=== PATIENT | male | born 1960 | race Caucasian/White ===

== ENCOUNTER 2018-01-13 10:35 | Emergency (ER) | payer OTHER ==
[2018-01-13 11:32] LABS: ADD MAN DIFF? NO
[2018-01-13 11:36] LABS: BASOPHILS % 0.5 % (0.0-2.0); EOSINOPHILS # 0.1 10^3/ul (0.0-0.5); EOSINOPHILS % 1.2 % (0.0-7.0); HEMATOCRIT 40.3 % (42.0-52.0); LYMPHOCYTES # 1.7 10^3/ul (0.8-2.9); LYMPHOCYTES % 27.9 % (15.0-51.0); MEAN CORPUSCULAR HGB CONC 34.7 g/dl (32.0-37.0); MEAN CORPUSCULAR VOLUME 86.3 fl (82.0-101.0); MEAN PLATELET VOLUME 10.6 fl (7.4-10.4); MONOCYTE # 0.4 10^3/ul (0.3-0.9); MONOCYTES % 6.4 % (0.0-11.0); NEUTROPHIL # 3.8 10^3/ul (1.6-7.5); NEUTROPHILS % 63.7 % (39.0-77.0); PLATELET COUNT 146 10^3/UL (140-415); RED BLOOD COUNT 4.67 10^6/ul (4.70-6.10); RED CELL DISTRIBUTION WIDTH 11.8 % (11.5-14.5)
[2018-01-13] MEDS: ASPIRIN 325 MG TAB PO (11:40)
[2018-01-13] MEDS: NITROGLYCERIN (SL) 0.4 MG TAB SL (11:40)
[2018-01-13 11:57] LABS: ALANINE AMINOTRANSFERASE 21 IU/L (13-69); ALBUMIN 4.4 g/dl (3.3-4.9); ALBUMIN/GLOBULIN RATIO 1.51; ALKALINE PHOSPHATASE 88 IU/L (42-121); ANION GAP 10 (5-13); ASPARTATE AMINO TRANSFERASE 28 IU/L (15-46); BILIRUBIN,INDIRECT 0.2 mg/dl (0-1.1); BILIRUBIN,TOTAL 0.2 mg/dl (0.2-1.3); BLOOD UREA NITROGEN 23 mg/dl (7-20); CALCIUM 9.2 mg/dl (8.4-10.2); CARBON DIOXIDE 25 mmol/L (21-31); CHLORIDE 106 mmol/L (97-110); CREATINE KINASE 254 IU/L (23-200); CREATININE 0.94 mg/dl (0.61-1.24); Estimated GFR > 60 mL/min (>60); GLUCOSE 82 mg/dl (70-220); POTASSIUM 4.5 mmol/L (3.5-5.1); SODIUM 141 mmol/L (135-144); TOTAL PROTEIN 7.3 g/dl (6.1-8.1)
[2018-01-13 12:10] LABS: B-TYPE NATRIURETIC PEPTIDE 113 PG/ML (0-125); CK INDEX 0.6; CK-MB 1.56 ng/ml (0.0-2.4); TROPONIN-I < 0.012 ng/ml (0.000-0.120)
[2018-01-13 12:35] LABS: INR 0.98; PROTIME 13.1 Sec (11.9-14.9)
[2018-01-13] MEDS: IOHEXOL 100 ML (13:36)
[2018-01-13] MEDS: SOD CHLORIDE 0.9% 100 ML (13:36)
== END 2018-01-13 14:25 | disposition home or self-care (01) ==
LOC: E/R 10:35
DX: R09.1 Pleurisy (principal); I10 Essential (primary) hypertension; Z79.82 Long term (current) use of aspirin
CPT/HCPCS: 71045; 71275; 80053; 82550; 82553; 83880; 84484; 85025; 85378; 85610; 85730; 93005; 99285-25

== ENCOUNTER 2018-03-06 07:28 | Day surgery (SDC) | payer OTHER ==
[~2018-03-06 07:28] MED LIST: DIAZEPAM 5 MG TAB PO; DIPHENHYDRAMINE 50 MG CAP PO; FAMOTIDINE 20 MG TAB PO; SOD CHLORIDE 0.45% 1,000 ML IV
[2018-03-06] MEDS ORDERED: LIDOCAINE 1% (MDV) 20 ML INJ (08:23)
[2018-03-06] MEDS ORDERED: MIDAZOLAM 1 MG/ML 2 ML INJ (08:23)
[2018-03-06] MEDS ORDERED: FENTAnyl 50 MCG/ML VIAL (08:23)
[2018-03-06] MEDS ORDERED: HEPARIN 1000 UNITS/ML 10 ML INJ (08:23)
[2018-03-06] MEDS ORDERED: VERAPAMIL 5 MG INJ (08:23)
[2018-03-06 08:52] LABS: ADD MAN DIFF? NO
[2018-03-06 09:00] LABS: BASOPHILS % 0.7 % (0.0-2.0); EOSINOPHILS # 0.1 10^3/ul (0.0-0.5); EOSINOPHILS % 1.4 % (0.0-7.0); HEMOGLOBIN 13.9 g/dl (14.0-18.0); LYMPHOCYTES # 1.3 10^3/ul (0.8-2.9); LYMPHOCYTES % 28.5 % (15.0-51.0); MEAN CORPUSCULAR HGB CONC 34.8 g/dl (32.0-37.0); MEAN CORPUSCULAR VOLUME 86.2 fl (82.0-101.0); MEAN PLATELET VOLUME 10.4 fl (7.4-10.4); MONOCYTE # 0.3 10^3/ul (0.3-0.9); MONOCYTES % 7.5 % (0.0-11.0); NEUTROPHIL # 2.7 10^3/ul (1.6-7.5); NEUTROPHILS % 61.7 % (39.0-77.0); PLATELET COUNT 149 10^3/UL (140-415); RED BLOOD COUNT 4.64 10^6/ul (4.70-6.10); RED CELL DISTRIBUTION WIDTH 11.9 % (11.5-14.5)
[2018-03-06 09:00] LABS: WHITE BLOOD COUNT 4.4 10^3/ul (4.8-10.8)
[2018-03-06 09:20] LABS: INR 0.97
[2018-03-06 09:21] LABS: PARTIAL THROMBOPLASTIN TIME 28.2 Sec (23.0-35.0)
[2018-03-06 09:24] LABS: ANION GAP 9 (5-13); CALCIUM 9.3 mg/dl (8.4-10.2); CARBON DIOXIDE 25 mmol/L (21-31); CHLORIDE 107 mmol/L (97-110); CREATININE 0.84 mg/dl (0.61-1.24); Estimated GFR > 60 mL/min (>60); GLUCOSE 97 mg/dl (70-220); POTASSIUM 4.4 mmol/L (3.5-5.1); SODIUM 141 mmol/L (135-144)
[2018-03-06 09:32] LABS: BLOOD UREA NITROGEN 21 mg/dl (7-20)
== END 2018-03-06 08:55 | disposition home or self-care (01) ==
LOC: SDS 07:28
DX: R06.02 Shortness of breath (principal); Z53.8 Procedure and treatment not carried out for other reasons
CPT/HCPCS: 71045; 80048; 85025; 85610; 85730; 93005

== ENCOUNTER 2018-03-12 09:05 | Inpatient (IN) | payer OTHER ==
[2018-03-12 09:58] LABS: ADD MAN DIFF? NO
[2018-03-12 10:01] LABS: BASOPHILS % 0.4 % (0.0-2.0); EOSINOPHILS % 0.9 % (0.0-7.0); HEMATOCRIT 41.3 % (42.0-52.0); HEMOGLOBIN 14.3 g/dl (14.0-18.0); LYMPHOCYTES # 1.2 10^3/ul (0.8-2.9); LYMPHOCYTES % 26.1 % (15.0-51.0); MEAN CORPUSCULAR HEMOGLOBIN 29.9 pg (29.0-33.0); MEAN CORPUSCULAR HGB CONC 34.6 g/dl (32.0-37.0); MEAN CORPUSCULAR VOLUME 86.4 fl (82.0-101.0); MEAN PLATELET VOLUME 10.2 fl (7.4-10.4); MONOCYTE # 0.3 10^3/ul (0.3-0.9); MONOCYTES % 6.3 % (0.0-11.0); NEUTROPHILS % 65.9 % (39.0-77.0); PLATELET COUNT 145 10^3/UL (140-415); RED BLOOD COUNT 4.78 10^6/ul (4.70-6.10); RED CELL DISTRIBUTION WIDTH 11.7 % (11.5-14.5)
[2018-03-12 10:01] LABS: WHITE BLOOD COUNT 4.6 10^3/ul (4.8-10.8)
[2018-03-12 10:20] LABS: INR 0.96; PROTIME 12.9 Sec (11.9-14.9)
[2018-03-12 10:21] LABS: PARTIAL THROMBOPLASTIN TIME 26.9 Sec (23.0-35.0)
[2018-03-12 10:27] LABS: ALANINE AMINOTRANSFERASE 21 IU/L (13-69); ALBUMIN 4.3 g/dl (3.3-4.9); ALKALINE PHOSPHATASE 74 IU/L (42-121); ANION GAP 12 (5-13); ASPARTATE AMINO TRANSFERASE 26 IU/L (15-46); BILIRUBIN,INDIRECT 0.4 mg/dl (0-1.1); BILIRUBIN,TOTAL 0.4 mg/dl (0.2-1.3); BLOOD UREA NITROGEN 15 mg/dl (7-20); CALCIUM 9.4 mg/dl (8.4-10.2); CARBON DIOXIDE 27 mmol/L (21-31); CHLORIDE 104 mmol/L (97-110); CHOL/HDL RATIO 4.8 RATIO; CHOLESTEROL 154 mg/dl (100-200); CREATININE 0.88 mg/dl (0.61-1.24); Estimated GFR > 60 mL/min (>60); GLUCOSE 91 mg/dl (70-220); HDL CHOLESTEROL 32 mg/dl (30-78); LDL CHOLESTEROL,CALCULATED 107 mg/dl; POTASSIUM 4.5 mmol/L (3.5-5.1); SODIUM 143 mmol/L (135-144); TOTAL PROTEIN 7.6 g/dl (6.1-8.1); TRIGLYCERIDES 73 mg/dl (0-149)
[2018-03-12] MEDS ORDERED: LIDOCAINE 1% (MDV) 20 ML INJ (10:29)
[2018-03-12] MEDS ORDERED: IODIXANOL LOCM 100 ML BTL (10:29)
[2018-03-12] MEDS ORDERED: HEPARIN 1000 UNITS/NS (A-LINE) 1,000 ML (10:29)
[2018-03-12] MEDS ORDERED: MIDAZOLAM 1 MG/ML 2 ML INJ (10:29)
[2018-03-12] MEDS ORDERED: VERAPAMIL 5 MG INJ (10:29)
[2018-03-12] MEDS ORDERED: FENTAnyl 50 MCG/ML VIAL (10:29)
[2018-03-12] MEDS ORDERED: HEPARIN 1000 UNITS/ML 10 ML INJ (10:29)
[2018-03-12] MEDS ORDERED: NITROGLYCERIN (IC) 100 MCG/ML INJ (10:34)
[2018-03-12] MEDS ORDERED: ACETAMINOPHEN 325 MG TAB PO (12:00)
[2018-03-12] MEDS ORDERED: morphine 2 MG INJ IV (12:00)
[2018-03-12] MEDS ORDERED: AL HYDROX/MG HYDROX/SIMETH 30 ML CUP PO (12:00)
[2018-03-12] MEDS: SOD CHLORIDE 0.9% 1,000 ML IV (12:25)
[2018-03-12] MEDS ORDERED: NITROGLYCERIN (SL) 0.4 MG TAB SL (18:30)
[2018-03-12] MEDS: traZODone 50 MG TAB PO (21:02)
[2018-03-12] MEDS: ATORVASTATIN 40 MG TAB PO (21:02)
[2018-03-12] MEDS: HYDROCODONE/APAP (10/325) TAB PO (21:06)
[2018-03-12] MEDS: LOSARTAN 25 MG TAB PO (22:00)
[2018-03-13] MEDS: HYDROCODONE/APAP (10/325) TAB PO ×3 (03:33→23:50)
[2018-03-13 07:41] LABS: ANION GAP 13 (5-13); BLOOD UREA NITROGEN 17 mg/dl (7-20); CALCIUM 9.5 mg/dl (8.4-10.2); CARBON DIOXIDE 22 mmol/L (21-31); CHLORIDE 105 mmol/L (97-110); CREATININE 0.93 mg/dl (0.61-1.24); Estimated GFR > 60 mL/min (>60); GLUCOSE 89 mg/dl (70-220); POTASSIUM 4.2 mmol/L (3.5-5.1); SODIUM 140 mmol/L (135-144)
[2018-03-13] MEDS: ASPIRIN (EC) 81 MG TAB PO (08:33)
[2018-03-13] MEDS: ISOSORBIDE MONONITRATE(SR)60 MG TAB PO (08:33)
[2018-03-13] MEDS: METOPROLOL (XL) 25 MG TAB PO (08:34)
[2018-03-13] MEDS ORDERED: METOPROLOL (XL) 25 MG TAB PO (09:00)
[2018-03-13] MEDS: LOSARTAN 25 MG TAB PO (11:33)
[2018-03-13] MEDS: ATORVASTATIN 40 MG TAB PO (20:15)
[2018-03-13] MEDS: traZODone 50 MG TAB PO (22:40)
[2018-03-14] MEDS ORDERED: EPHEDrine SULFATE 50 MG/5 ML SYG (07:00)
[2018-03-14] MEDS ORDERED: DOPamine-D5W 1.6 MG/ML 250 ML (07:00)
[2018-03-14] MEDS ORDERED: NA BICARBONATE 8.4% 50 ML SYG ×2 (07:00→11:16)
[2018-03-14 08:15] LABS: ADD MAN DIFF? NO
[2018-03-14 08:20] LABS: BASOPHILS % 0.5 % (0.0-2.0); EOSINOPHILS # 0.1 10^3/ul (0.0-0.5); EOSINOPHILS % 0.9 % (0.0-7.0); HEMOGLOBIN 15.3 g/dl (14.0-18.0); LYMPHOCYTES # 1.7 10^3/ul (0.8-2.9); LYMPHOCYTES % 28.7 % (15.0-51.0); MEAN CORPUSCULAR HEMOGLOBIN 29.5 pg (29.0-33.0); MEAN CORPUSCULAR VOLUME 86.7 fl (82.0-101.0); MEAN PLATELET VOLUME 10.6 fl (7.4-10.4); MONOCYTE # 0.5 10^3/ul (0.3-0.9); MONOCYTES % 8.5 % (0.0-11.0); NEUTROPHIL # 3.6 10^3/ul (1.6-7.5); NEUTROPHILS % 60.9 % (39.0-77.0); PLATELET COUNT 148 10^3/UL (140-415); RED BLOOD COUNT 5.19 10^6/ul (4.70-6.10); RED CELL DISTRIBUTION WIDTH 11.6 % (11.5-14.5)
[2018-03-14 08:20] LABS: WHITE BLOOD COUNT 5.9 10^3/ul (4.8-10.8)
[2018-03-14 08:22] LABS: PLATELET COUNT 153 10^3/UL (140-415)
[2018-03-14] MEDS: LOSARTAN 25 MG TAB PO ×2 (08:36→21:07)
[2018-03-14] MEDS: ASPIRIN (EC) 81 MG TAB PO (08:36)
[2018-03-14] MEDS: METOPROLOL (XL) 25 MG TAB PO (08:37)
[2018-03-14] MEDS: ISOSORBIDE MONONITRATE(SR)60 MG TAB PO (08:37)
[2018-03-14 08:40] LABS: INR 0.95; PROTIME 12.8 Sec (11.9-14.9)
[2018-03-14 08:41] LABS: PARTIAL THROMBOPLASTIN TIME 26.1 Sec (23.0-35.0); THROMBIN TIME 16.8 SEC (13.8-19.1)
[2018-03-14 08:43] LABS: ANION GAP 4 (5-13); BLOOD UREA NITROGEN 18 mg/dl (7-20); CALCIUM 9.6 mg/dl (8.4-10.2); CARBON DIOXIDE 28 mmol/L (21-31); CHLORIDE 110 mmol/L (97-110); CREATININE 0.95 mg/dl (0.61-1.24); Estimated GFR > 60 mL/min (>60); GLUCOSE 94 mg/dl (70-220); MAGNESIUM 2.2 mg/dl (1.7-2.5); POTASSIUM 4.6 mmol/L (3.5-5.1); SODIUM 142 mmol/L (135-144)
[2018-03-14] MEDS ORDERED: ETOMIDATE 20 MG INJ (11:02)
[2018-03-14] MEDS ORDERED: SUCCINYLCHOLINE CHLORIDE 100 MG/5 ML SYG IV (11:02)
[2018-03-14] MEDS ORDERED: MIDAZOLAM 5 ML ×2 (11:02)
[2018-03-14] MEDS ORDERED: HEPARIN 1000 UNITS/ML 10 ML INJ ×2 (11:02→11:13)
[2018-03-14] MEDS ORDERED: LIDOCAINE 2% (SDV) 5 ML INJ (11:02)
[2018-03-14] MEDS ORDERED: ROCURONIUM 50 MG INJ (11:02)
[2018-03-14] MEDS ORDERED: PROTAMINE 250 MG INJ ×2 (11:03→18:19)
[2018-03-14] MEDS ORDERED: AMINOCAPROIC ACID 5 GM INJ ×2 (11:03→11:12)
[2018-03-14] MEDS ORDERED: CEFAZOLIN 1 GM INJ (11:05)
[2018-03-14] MEDS ORDERED: PROPOFOL 100 ML (11:06)
[2018-03-14] MEDS ORDERED: NITROGLYCERIN 50 MG/D5W (PMX) 250 ML ×2 (11:07→14:50)
[2018-03-14] MEDS ORDERED: ALBUMIN HUMAN 25% 300 ML (11:11)
[2018-03-14] MEDS ORDERED: CA CHLORIDE 10% 10 ML SYRINGE (11:12)
[2018-03-14] MEDS ORDERED: POTASSIUM CHLORIDE 40 MEQ INJ (11:13)
[2018-03-14] MEDS ORDERED: LIDOCAINE 100 MG SYRINGE (11:14)
[2018-03-14] MEDS ORDERED: MAGNESIUM SULFATE (MG) 50% 10 ML INJ (11:14)
[2018-03-14] MEDS ORDERED: PHENYLephrine (100 MCG/ML) 5ML SYG (11:15)
[2018-03-14] MEDS ORDERED: MANNITOL 20% 500 ML (11:15)
[2018-03-14] MEDS ORDERED: PHENYLephrine 10 MG INJ (11:16)
[2018-03-14] MEDS ORDERED: INSULIN HUMAN REGULAR 100 UNIT in SOD CHLORIDE 0.9% 99 ML IV (12:00)
[2018-03-14] MEDS ORDERED: EPINEPHrine 4 MG in DEXTROSE 5% 246 ML IV (12:00)
[2018-03-14] MEDS ORDERED: PHENYLephrine 20MG IN 250 ML 250 ML IV (12:00)
[2018-03-14] MEDS: VANCOMYCIN 1 GM INJ (12:24)
[2018-03-14] MEDS: PAPAVERINE 60 MG INJ (12:24)
[2018-03-14] MEDS: HEPARIN 1000 UNITS/ML 10 ML INJ (12:24)
[2018-03-14] MEDS ORDERED: ALBUMIN HUMAN 25% 100 ML (14:50)
[2018-03-14] MEDS ORDERED: ALBUMIN HUMAN 5% 500 ML (14:50)
[2018-03-14] MEDS ORDERED: MILRINONE LACTATE 100 ML (14:51)
[2018-03-14] MEDS ORDERED: NORepinephrine 8MG/250 ML (PMX 250 ML IV (15:30)
[2018-03-14 18:00] LABS: IMMEDIATE SPIN CROSSMATCH 1 6
[2018-03-14 18:00] LABS: TYPE AND SCREEN 1
[2018-03-14] MEDS ORDERED: AMIODARONE 150 MG INJ (18:04)
[2018-03-14] MEDS ORDERED: morphine 10 MG INJ (18:25)
[2018-03-14] MEDS ORDERED: LABETALOL HCL 20MG INJ (19:21)
[2018-03-14 20:34] LABS: ADD MAN DIFF? NO
[2018-03-14 20:36] LABS: BASOPHILS % 0.2 % (0.0-2.0); EOSINOPHILS % 0.2 % (0.0-7.0); HEMATOCRIT 26.8 % (42.0-52.0); HEMOGLOBIN 9.3 g/dl (14.0-18.0); LYMPHOCYTES # 0.8 10^3/ul (0.8-2.9); LYMPHOCYTES % 9.2 % (15.0-51.0); MEAN CORPUSCULAR HEMOGLOBIN 30.1 pg (29.0-33.0); MEAN CORPUSCULAR HGB CONC 34.7 g/dl (32.0-37.0); MEAN CORPUSCULAR VOLUME 86.7 fl (82.0-101.0); MEAN PLATELET VOLUME 10.4 fl (7.4-10.4); MONOCYTE # 0.4 10^3/ul (0.3-0.9); MONOCYTES % 5.3 % (0.0-11.0); NEUTROPHILS % 84.5 % (39.0-77.0); PLATELET COUNT 102 10^3/UL (140-415); RED BLOOD COUNT 3.09 10^6/ul (4.70-6.10); RED CELL DISTRIBUTION WIDTH 11.7 % (11.5-14.5)
[2018-03-14 20:36] LABS: WHITE BLOOD COUNT 8.2 10^3/ul (4.8-10.8)
[2018-03-14 20:41] LABS: PARTIAL THROMBOPLASTIN TIME 27.5 Sec (23.0-35.0)
[2018-03-14 20:41] LABS: MODE VENT - AC; MetHgb Mixed Venous 0.3 %; Mixed Venous COHb 0.3 %; Mixed Venous Fraction OxyHgb 80.3 %; Mixed Venous Oxygen Sat 80.8 mmHG (65.0-75.0); Mixed Venous Total Hemglobin 10.2 g/dl; Sample Type BLMV; Site A-Line
[2018-03-14 20:43] LABS: AADO2 Arterial 344.7 mmHg (7.0-24.0); Arterial Base Excess -3.7 mmol/L (-3.0-3); Arterial COHb 0.3 % (0.0-3.0); Arterial Fraction of Oxyhgb 96.5 % (93.0-99.0); Arterial HCO3 21.2 mmol/L (22.0-26.0); Arterial MetHb 0.2 % (0.0-1.5); Arterial pCO2 37.6 mmhg (35-45); MODE VENT - AC; Site A-Line
[2018-03-14 20:45] LABS: ALANINE AMINOTRANSFERASE 21 IU/L (13-69); ALBUMIN 4.5 g/dl (3.3-4.9); ALBUMIN/GLOBULIN RATIO 2.14; ALKALINE PHOSPHATASE 43 IU/L (42-121); ANION GAP 14 (5-13); ASPARTATE AMINO TRANSFERASE 37 IU/L (15-46); BILIRUBIN,INDIRECT 0.5 mg/dl (0-1.1); BILIRUBIN,TOTAL 0.5 mg/dl (0.2-1.3); BLOOD UREA NITROGEN 16 mg/dl (7-20); CALCIUM 10.8 mg/dl (8.4-10.2); CARBON DIOXIDE 24 mmol/L (21-31); CHLORIDE 109 mmol/L (97-110); CREATININE 1.13 mg/dl (0.61-1.24); Estimated GFR > 60 mL/min (>60); GLUCOSE 126 mg/dl (70-220); MAGNESIUM 3.4 mg/dl (1.7-2.5); POTASSIUM 4.2 mmol/L (3.5-5.1); SODIUM 147 mmol/L (135-144); TOTAL PROTEIN 6.6 g/dl (6.1-8.1)
[2018-03-14] MEDS: ATORVASTATIN 40 MG TAB PO (21:00)
[2018-03-14] MEDS: traZODone 50 MG TAB PO (21:00)
[2018-03-14] MEDS: morphine 4 MG/ML VIAL IV (21:30)
[2018-03-14] MEDS ORDERED: MILRINONE LACTATE 100 ML IV (21:30)
[2018-03-14] MEDS ORDERED: DEXTROSE 50% 50 ML SYRINGE IV ×2 (21:30)
[2018-03-14] MEDS: ACCU-CHEK XX ×3 (21:41→23:30)
[2018-03-14] MEDS: PROPOFOL 100 ML IV ×2 (21:59→23:36)
[2018-03-14] MEDS: NITROGLYCERIN 50 MG/D5W (PMX) 250 ML IV (22:01)
[2018-03-14] MEDS: niCARdipine 25 MG in SOD CHLORIDE 0.9% 240 ML IV (22:59)
[2018-03-14] MEDS ORDERED: POTASSIUM CHLORIDE 50 ML IVPB (23:30)
[2018-03-14] MEDS ORDERED: ACETAMINOPHEN 650MG/20.3ML CUP NGT (23:30)
[2018-03-14] MEDS: POTASSIUM CHLORIDE 40 MEQ in DEXTROSE 5%-0.225% NACL 1,000 ML IV (23:30)
[2018-03-14] MEDS: MAGNESIUM SULFATE 1 GM/D5W 100 ML IVPB (23:30)
[2018-03-14] MEDS: INSULIN HUMAN REGULAR 100 UNIT in SOD CHLORIDE 0.9% 99 ML IV (23:40)
[2018-03-15] MEDS: ACCU-CHEK XX ×24 (00:41→23:37)
[2018-03-15] MEDS: INSULIN HUMAN REGULAR 100 UNIT in SOD CHLORIDE 0.9% 99 ML IV ×2 (00:45→01:39)
[2018-03-15] MEDS: POTASSIUM CHLORIDE 40 MEQ in DEXTROSE 5%-0.225% NACL 1,000 ML IV (00:56)
[2018-03-15 02:33] LABS: ADD MAN DIFF? NO
[2018-03-15 02:36] LABS: WHITE BLOOD COUNT 6.9 10^3/ul (4.8-10.8)
[2018-03-15 02:36] LABS: ABNORMAL IP MESSAGE 1; BASOPHILS % 0.1 % (0.0-2.0); HEMATOCRIT 28.3 % (42.0-52.0); HEMOGLOBIN 9.7 g/dl (14.0-18.0); LYMPHOCYTES # 0.4 10^3/ul (0.8-2.9); LYMPHOCYTES % 5.1 % (15.0-51.0); MEAN CORPUSCULAR HEMOGLOBIN 29.8 pg (29.0-33.0); MEAN CORPUSCULAR HGB CONC 34.3 g/dl (32.0-37.0); MEAN CORPUSCULAR VOLUME 87.1 fl (82.0-101.0); MEAN PLATELET VOLUME 10.7 fl (7.4-10.4); MONOCYTE # 0.7 10^3/ul (0.3-0.9); MONOCYTES % 10.2 % (0.0-11.0); NEUTROPHIL # 5.8 10^3/ul (1.6-7.5); NEUTROPHILS % 84.3 % (39.0-77.0); PLATELET COUNT 119 10^3/UL (140-415); POSITIVE DIFF @See below; RED BLOOD COUNT 3.25 10^6/ul (4.70-6.10); RED CELL DISTRIBUTION WIDTH 11.8 % (11.5-14.5)
[2018-03-15 02:57] LABS: PARTIAL THROMBOPLASTIN TIME 37.1 Sec (23.0-35.0)
[2018-03-15] MEDS: PROPOFOL 100 ML IV (03:02)
[2018-03-15 03:08] LABS: ANION GAP 10 (5-13); BLOOD UREA NITROGEN 14 mg/dl (7-20); CARBON DIOXIDE 26 mmol/L (21-31); CHLORIDE 111 mmol/L (97-110); CREATININE 0.98 mg/dl (0.61-1.24); Estimated GFR > 60 mL/min (>60); GLUCOSE 120 mg/dl (70-220); MAGNESIUM 2.7 mg/dl (1.7-2.5); POTASSIUM 4.2 mmol/L (3.5-5.1); SODIUM 147 mmol/L (135-144)
[2018-03-15 05:21] LABS: AADO2 Arterial 141.6 mmHg (7.0-24.0); Arterial Base Excess -1.4 mmol/L (-3.0-3); Arterial Blood Gas Oxygen Sat 96.9 mmHG (95.0-98.0); Arterial COHb 0.3 % (0.0-3.0); Arterial Fraction of Oxyhgb 96.4 % (93.0-99.0); Arterial HCO3 22.9 mmol/L (22.0-26.0); Arterial MetHb 0.2 % (0.0-1.5); Arterial pCO2 36.7 mmhg (35-45); Blood Gas PS 5; MODE VENT - CPAP; Site A-Line
[2018-03-15] MEDS: HYDROmorphONE 2 MG/ML SYG IV ×4 (05:44→23:32)
[2018-03-15] MEDS: CEFAZOLIN 1 GM/50 ML (PMX) 50 ML IVPB ×3 (06:13→22:05)
[2018-03-15] MEDS: ISOSORBIDE MONONITRATE(SR)60 MG TAB PO (08:43)
[2018-03-15] MEDS: ASPIRIN (EC) 81 MG TAB PO (08:43)
[2018-03-15] MEDS: METOPROLOL (XL) 25 MG TAB PO (08:43)
[2018-03-15] MEDS: morphine SULFATE/PF (2 MG/2 ML) SYG IV (08:49)
[2018-03-15] MEDS: HYDROCODONE/APAP (10/325) TAB PO ×2 (11:52→20:50)
[2018-03-15 15:36] LABS: LACTIC ACID 3.1 mmol/L (0.5-2.0)
[2018-03-15] MEDS ORDERED: traZODone 50 MG TAB PO (17:00)
[2018-03-15] MEDS: ATORVASTATIN 40 MG TAB PO (20:44)
[2018-03-15] MEDS: traZODone 50 MG TAB PO (20:44)
[2018-03-15] MEDS: METOPROLOL 25 MG TAB PO (20:45)
[2018-03-16] MEDS: ACCU-CHEK XX ×10 (00:30→12:13)
[2018-03-16 05:14] LABS: HEMOGLOBIN A1C 5.2 % (0-5.9)
[2018-03-16 05:33] LABS: MAGNESIUM 2.2 mg/dl (1.7-2.5)
[2018-03-16 05:39] LABS: ANION GAP 9 (5-13); BLOOD UREA NITROGEN 15 mg/dl (7-20); CALCIUM 8.4 mg/dl (8.4-10.2); CARBON DIOXIDE 25 mmol/L (21-31); CHLORIDE 105 mmol/L (97-110); CREATININE 0.85 mg/dl (0.61-1.24); Estimated GFR > 60 mL/min (>60); GLUCOSE 102 mg/dl (70-220); POTASSIUM 3.9 mmol/L (3.5-5.1); SODIUM 139 mmol/L (135-144)
[2018-03-16 05:48] LABS: ADD UMIC YES; UR ASCORBIC ACID NEGATIVE (NEGATIVE); UR BILIRUBIN (Dip) NEGATIVE (NEGATIVE); UR BLOOD (Dip) 1+ mg/dL (NEGATIVE); UR CLARITY CLEAR (CLEAR); UR COLOR YELLOW (YELLOW); UR GLUCOSE (Dip) NEGATIVE (NEGATIVE); UR KETONES (Dip) NEGATIVE (NEGATIVE); UR LEUKOCYTE ESTERASE (Dip) NEGATIVE Leu/ul (NEGATIVE); UR NITRITE (Dip) NEGATIVE (NEGATIVE); UR RBC 29 /HPF (0-5); UR SPECIFIC GRAVITY (Dip) 1.028 (1.003-1.030); UR TOTAL PROTEIN (Dip) NEGATIVE (NEGATIVE); UR UROBILINOGEN (Dip) NEGATIVE (NEGATIVE); UR WBC 5 /HPF (0-5)
[2018-03-16] MEDS: HYDROmorphONE 2 MG/ML SYG IV ×2 (08:47→20:37)
[2018-03-16] MEDS: ASPIRIN (EC) 81 MG TAB PO (09:17)
[2018-03-16] MEDS: LOSARTAN 25 MG TAB PO (09:18)
[2018-03-16] MEDS: METOPROLOL 25 MG TAB PO ×2 (09:18→20:34)
[2018-03-16] MEDS: HYDROCODONE/APAP (10/325) TAB PO (12:55)
[2018-03-16] MEDS ORDERED: GLUCAGON 1 MG INJ IM (13:00)
[2018-03-16] MEDS: INSULIN ASPART [NOVOLOG] 3 ML PEN SC ×3 (13:00→20:35)
[2018-03-16] MEDS ORDERED: DEXTROSE 50% 50 ML SYRINGE IV ×2 (13:00)
[2018-03-16] MEDS ORDERED: GLUCOSE GEL 15 GRAM TUBE PO ×2 (13:00)
[2018-03-16] MEDS ORDERED: GLUCOSE GEL 15 GRAM TUBE BUCCAL (13:00)
[2018-03-16 13:32] LABS: ADD MAN DIFF? NO
[2018-03-16 13:34] LABS: ABNORMAL IP MESSAGE 1; BASOPHILS % 0.2 % (0.0-2.0); EOSINOPHILS % 0.1 % (0.0-7.0); HEMATOCRIT 26.8 % (42.0-52.0); HEMOGLOBIN 8.9 g/dl (14.0-18.0); LYMPHOCYTES # 0.9 10^3/ul (0.8-2.9); LYMPHOCYTES % 9.3 % (15.0-51.0); MEAN CORPUSCULAR HEMOGLOBIN 29.9 pg (29.0-33.0); MEAN CORPUSCULAR HGB CONC 33.2 g/dl (32.0-37.0); MEAN CORPUSCULAR VOLUME 89.9 fl (82.0-101.0); MEAN PLATELET VOLUME 10.9 fl (7.4-10.4); MONOCYTE # 0.9 10^3/ul (0.3-0.9); MONOCYTES % 9.7 % (0.0-11.0); NEUTROPHIL # 7.6 10^3/ul (1.6-7.5); NEUTROPHILS % 80.2 % (39.0-77.0); PLATELET COUNT 97 10^3/UL (140-415); POSITIVE DIFF @See below; RED BLOOD COUNT 2.98 10^6/ul (4.70-6.10); RED CELL DISTRIBUTION WIDTH 11.9 % (11.5-14.5)
[2018-03-16 13:34] LABS: WHITE BLOOD COUNT 9.5 10^3/ul (4.8-10.8)
[2018-03-16] MEDS: ATORVASTATIN 40 MG TAB PO (20:34)
[2018-03-16] MEDS: traZODone 50 MG TAB PO (20:35)
[2018-03-17] MEDS: HYDROmorphONE 2 MG/ML SYG IV ×5 (02:34→22:09)
[2018-03-17 05:28] LABS: ADD MAN DIFF? NO
[2018-03-17 05:42] LABS: WHITE BLOOD COUNT 6.9 10^3/ul (4.8-10.8)
[2018-03-17 05:42] LABS: ABNORMAL IP MESSAGE 1; BASOPHILS % 0.3 % (0.0-2.0); EOSINOPHILS # 0.1 10^3/ul (0.0-0.5); EOSINOPHILS % 0.9 % (0.0-7.0); HEMATOCRIT 27.9 % (42.0-52.0); HEMOGLOBIN 9.4 g/dl (14.0-18.0); LYMPHOCYTES % 14.3 % (15.0-51.0); MEAN CORPUSCULAR HEMOGLOBIN 29.7 pg (29.0-33.0); MEAN CORPUSCULAR HGB CONC 33.7 g/dl (32.0-37.0); MEAN PLATELET VOLUME 11.2 fl (7.4-10.4); MONOCYTE # 0.6 10^3/ul (0.3-0.9); MONOCYTES % 8.5 % (0.0-11.0); NEUTROPHIL # 5.3 10^3/ul (1.6-7.5); NEUTROPHILS % 75.7 % (39.0-77.0); PLATELET COUNT 95 10^3/UL (140-415); POSITIVE DIFF @See below; RED BLOOD COUNT 3.17 10^6/ul (4.70-6.10); RED CELL DISTRIBUTION WIDTH 11.6 % (11.5-14.5)
[2018-03-17 05:55] LABS: ANION GAP 5 (5-13); BLOOD UREA NITROGEN 18 mg/dl (7-20); CALCIUM 8.6 mg/dl (8.4-10.2); CARBON DIOXIDE 26 mmol/L (21-31); CHLORIDE 107 mmol/L (97-110); CREATININE 0.88 mg/dl (0.61-1.24); Estimated GFR > 60 mL/min (>60); GLUCOSE 127 mg/dl (70-220); POTASSIUM 4.1 mmol/L (3.5-5.1); SODIUM 138 mmol/L (135-144)
[2018-03-17] MEDS: INSULIN ASPART [NOVOLOG] 3 ML PEN SC ×2 (07:55→12:00)
[2018-03-17] MEDS: ASPIRIN (EC) 81 MG TAB PO (08:53)
[2018-03-17] MEDS: LOSARTAN 25 MG TAB PO (08:54)
[2018-03-17] MEDS: METOPROLOL 25 MG TAB PO ×2 (08:54→20:42)
[2018-03-17] MEDS: HYDROCODONE/APAP (10/325) TAB PO (08:54)
[2018-03-17] MEDS: morphine SULFATE/PF (2 MG/2 ML) SYG IV (11:36)
[2018-03-17] MEDS: traZODone 50 MG TAB PO (20:41)
[2018-03-17] MEDS: ATORVASTATIN 40 MG TAB PO (20:41)
[2018-03-17 21:37] LABS: INSULIN 18.7 uIU/mL (2.0-19.6)
[2018-03-17] MEDS: ONDANSETRON 4 MG INJ IV (22:09)
[2018-03-18] MEDS: HYDROmorphONE 2 MG/ML SYG IV (04:53)
[2018-03-18 07:51] LABS: ADD MAN DIFF? NO
[2018-03-18 08:02] LABS: BASOPHILS % 0.4 % (0.0-2.0); EOSINOPHILS # 0.2 10^3/ul (0.0-0.5); HEMATOCRIT 28.3 % (42.0-52.0); HEMOGLOBIN 9.5 g/dl (14.0-18.0); LYMPHOCYTES # 0.7 10^3/ul (0.8-2.9); LYMPHOCYTES % 13.7 % (15.0-51.0); MEAN CORPUSCULAR HEMOGLOBIN 29.8 pg (29.0-33.0); MEAN CORPUSCULAR HGB CONC 33.6 g/dl (32.0-37.0); MEAN CORPUSCULAR VOLUME 88.7 fl (82.0-101.0); MEAN PLATELET VOLUME 11.1 fl (7.4-10.4); MONOCYTE # 0.6 10^3/ul (0.3-0.9); MONOCYTES % 10.9 % (0.0-11.0); NEUTROPHIL # 3.8 10^3/ul (1.6-7.5); NEUTROPHILS % 71.4 % (39.0-77.0); PLATELET COUNT 122 10^3/UL (140-415); RED BLOOD COUNT 3.19 10^6/ul (4.70-6.10); RED CELL DISTRIBUTION WIDTH 11.4 % (11.5-14.5)
[2018-03-18 08:02] LABS: WHITE BLOOD COUNT 5.3 10^3/ul (4.8-10.8)
[2018-03-18] MEDS: ASPIRIN (EC) 81 MG TAB PO (08:25)
[2018-03-18] MEDS: LOSARTAN 25 MG TAB PO (08:26)
[2018-03-18] MEDS: METOPROLOL 25 MG TAB PO ×2 (08:26→21:37)
[2018-03-18 08:31] LABS: ANION GAP 5 (5-13); BLOOD UREA NITROGEN 14 mg/dl (7-20); CALCIUM 8.7 mg/dl (8.4-10.2); CARBON DIOXIDE 27 mmol/L (21-31); CHLORIDE 104 mmol/L (97-110); CREATININE 0.79 mg/dl (0.61-1.24); Estimated GFR > 60 mL/min (>60); GLUCOSE 112 mg/dl (70-220); MAGNESIUM 2.2 mg/dl (1.7-2.5); POTASSIUM 3.9 mmol/L (3.5-5.1); SODIUM 136 mmol/L (135-144)
[2018-03-18] MEDS: HYDROCODONE/APAP (10/325) TAB PO (08:31)
[2018-03-18] MEDS: FUROSEMIDE 20 MG INJ IV (09:20)
[2018-03-18] MEDS: morphine SULFATE/PF (2 MG/2 ML) SYG IV ×2 (11:16→18:41)
[2018-03-18] MEDS: traZODone 50 MG TAB PO (21:37)
[2018-03-18] MEDS: ATORVASTATIN 40 MG TAB PO (21:37)
[2018-03-18] MEDS: MAGNESIUM HYDROXIDE 30ML CUP PO (21:38)
[2018-03-18] MEDS: SENNA TAB PO (21:38)
[2018-03-19 05:20] LABS: ADD MAN DIFF? NO
[2018-03-19 05:23] LABS: BASOPHILS % 0.4 % (0.0-2.0); EOSINOPHILS # 0.2 10^3/ul (0.0-0.5); EOSINOPHILS % 3.7 % (0.0-7.0); HEMATOCRIT 29.3 % (42.0-52.0); HEMOGLOBIN 10.1 g/dl (14.0-18.0); LYMPHOCYTES # 0.8 10^3/ul (0.8-2.9); LYMPHOCYTES % 17.7 % (15.0-51.0); MEAN CORPUSCULAR HEMOGLOBIN 30.1 pg (29.0-33.0); MEAN CORPUSCULAR HGB CONC 34.5 g/dl (32.0-37.0); MEAN CORPUSCULAR VOLUME 87.2 fl (82.0-101.0); MEAN PLATELET VOLUME 10.3 fl (7.4-10.4); MONOCYTE # 0.5 10^3/ul (0.3-0.9); MONOCYTES % 10.7 % (0.0-11.0); NEUTROPHIL # 3.1 10^3/ul (1.6-7.5); NEUTROPHILS % 67.1 % (39.0-77.0); PLATELET COUNT 162 10^3/UL (140-415); RED BLOOD COUNT 3.36 10^6/ul (4.70-6.10); RED CELL DISTRIBUTION WIDTH 11.3 % (11.5-14.5)
[2018-03-19 05:23] LABS: WHITE BLOOD COUNT 4.6 10^3/ul (4.8-10.8)
[2018-03-19 06:11] LABS: ANION GAP 4 (5-13); BLOOD UREA NITROGEN 16 mg/dl (7-20); CALCIUM 9.1 mg/dl (8.4-10.2); CARBON DIOXIDE 29 mmol/L (21-31); CHLORIDE 107 mmol/L (97-110); CREATININE 0.87 mg/dl (0.61-1.24); Estimated GFR > 60 mL/min (>60); GLUCOSE 108 mg/dl (70-220); POTASSIUM 3.9 mmol/L (3.5-5.1); SODIUM 140 mmol/L (135-144)
[2018-03-19] MEDS: LOSARTAN 25 MG TAB PO (10:12)
[2018-03-19] MEDS: SENNA TAB PO ×2 (10:12→21:15)
[2018-03-19] MEDS: ASPIRIN (EC) 81 MG TAB PO (10:12)
[2018-03-19] MEDS: METOPROLOL 25 MG TAB PO ×2 (10:13→21:15)
[2018-03-19] MEDS: HYDROCODONE/APAP (10/325) TAB PO ×2 (10:34→15:04)
[2018-03-19] MEDS: FUROSEMIDE 20 MG TAB PO (15:04)
[2018-03-19] MEDS ORDERED: morphine LIQ (10 MG/5 ML) CUP PO (16:30)
[2018-03-19] MEDS: traZODone 50 MG TAB PO (21:15)
[2018-03-19] MEDS: MAGNESIUM HYDROXIDE 30ML CUP PO (21:15)
[2018-03-19] MEDS: ATORVASTATIN 40 MG TAB PO (21:15)
[2018-03-20] MEDS: HYDROCODONE/APAP (10/325) TAB PO ×2 (05:49→13:21)
[2018-03-20 05:50] LABS: ADD MAN DIFF? NO
[2018-03-20 06:05] LABS: BASOPHILS % 0.6 % (0.0-2.0); EOSINOPHILS # 0.2 10^3/ul (0.0-0.5); EOSINOPHILS % 3.5 % (0.0-7.0); HEMATOCRIT 29.7 % (42.0-52.0); HEMOGLOBIN 10.5 g/dl (14.0-18.0); LYMPHOCYTES # 0.9 10^3/ul (0.8-2.9); LYMPHOCYTES % 18.4 % (15.0-51.0); MEAN CORPUSCULAR HEMOGLOBIN 30.2 pg (29.0-33.0); MEAN CORPUSCULAR HGB CONC 35.4 g/dl (32.0-37.0); MEAN CORPUSCULAR VOLUME 85.3 fl (82.0-101.0); MEAN PLATELET VOLUME 9.8 fl (7.4-10.4); MONOCYTE # 0.5 10^3/ul (0.3-0.9); MONOCYTES % 10.5 % (0.0-11.0); NEUTROPHIL # 3.4 10^3/ul (1.6-7.5); NEUTROPHILS % 66.2 % (39.0-77.0); PLATELET COUNT 193 10^3/UL (140-415); RED BLOOD COUNT 3.48 10^6/ul (4.70-6.10); RED CELL DISTRIBUTION WIDTH 11.3 % (11.5-14.5)
[2018-03-20 06:05] LABS: WHITE BLOOD COUNT 5.1 10^3/ul (4.8-10.8)
[2018-03-20 06:28] LABS: ANION GAP 7 (5-13); BLOOD UREA NITROGEN 17 mg/dl (7-20); CALCIUM 9.3 mg/dl (8.4-10.2); CARBON DIOXIDE 26 mmol/L (21-31); CHLORIDE 106 mmol/L (97-110); Estimated GFR > 60 mL/min (>60); GLUCOSE 108 mg/dl (70-220); POTASSIUM 4.3 mmol/L (3.5-5.1); SODIUM 139 mmol/L (135-144)
[2018-03-20] MEDS: SENNA TAB PO (09:00)
[2018-03-20] MEDS: ASPIRIN (EC) 81 MG TAB PO (09:28)
[2018-03-20] MEDS: METOPROLOL 25 MG TAB PO (09:29)
[2018-03-20] MEDS: LOSARTAN 25 MG TAB PO (13:21)
[2018-03-20] MEDS ORDERED: HYDROCODONE/APAP (5/325) TAB PO (14:00)
== END 2018-03-20 17:15 | disposition home or self-care (01) | DRG 234 ==
LOC: SDS 09:05 → TEL 03-14 08:17 → 6WM 03-16 17:00 → SDS 09:05 → ICU 03-14 19:58 → SDS 11:33 → REC 11:34 → TEL 12:12
PROC: 021209W Bypass Coronary Artery, Three Arteries from Aorta with Autologous Venous Tissue, Open Approach (ICD-10-PCS; principal; 2018-03-12 10:36)
PROC: 4A023N7 Measurement of Cardiac Sampling and Pressure, Left Heart, Percutaneous Approach (ICD-10-PCS; 2018-03-12 10:36)
PROC: 02100Z9 Bypass Coronary Artery, One Artery from Left Internal Mammary, Open Approach (ICD-10-PCS; 2018-03-12 10:36)
PROC: 06BP4ZZ Excision of Right Saphenous Vein, Percutaneous Endoscopic Approach (ICD-10-PCS; 2018-03-12 10:36)
PROC: B211YZZ Fluoroscopy of Multiple Coronary Arteries using Other Contrast (ICD-10-PCS; 2018-03-12 10:36)
PROC: B215YZZ Fluoroscopy of Left Heart using Other Contrast (ICD-10-PCS; 2018-03-12 10:36)
PROC: 5A1221Z Performance of Cardiac Output, Continuous (ICD-10-PCS; 2018-03-12 10:36)
PROC: 02HP32Z Insertion of Monitoring Device into Pulmonary Trunk, Percutaneous Approach (ICD-10-PCS; 2018-03-12 10:36)
DX: I25.119 Atherosclerotic heart disease of native coronary artery with unspecified angina pectoris (principal); I10 Essential (primary) hypertension; E78.5 Hyperlipidemia, unspecified; I25.5 Ischemic cardiomyopathy; R50.82 Postprocedural fever
CPT/HCPCS: 36430; 36592; 36600; 71045; 80048; 80053; 80061; 81001; 82803; 82962; 83036; 83525; 83605; 83735; 85025; 85049; 85610; 85670; 85730; 86850; 86900; 86901; 86920; 87040; 87081; 87086; 93005; 93312; 93320; 93325; 93458; 93880; 93970; 94002; 94003; 94770; 97162